=== PATIENT | female | born 1960 | race Caucasian/White ===

== ENCOUNTER 2017-05-25 14:52 | Emergency (ER) | payer OTHER ==
[2017-05-25 14:57] VITALS: PULSE 85; RESP 20; TEMP 98; O2SAT 98
--- NOTE | 2017-05-25 15:38 | ED PDOC ---
HPI: Trauma/Fall - HPI Time Seen by Provider: 05/25/17 15:03 Chief Complaint (Nursing): Trauma Chief Complaint (Provider): Chest pain History Per: Patient History/Exam Limitations: no limitations Onset/Duration Of Symptoms: Days (7), Persistent Location Of Injury: Left: Chest Severity: Moderate Additional History Per: Patient Additional Complaint(s): The pt is a 56yo female, PMhx of breast augmentation surgery in 2000, presents to the ED for evaluation of left chest wall pain, ongoing since she fell onto a coffee table one week ago. Pt states at time of injury, the pain was tolerable but has been increasing in intensity since then. Pt also states she developed some bruising which has progressively worsened. She reports pain worsens with deep inspiration, coughing as well as moving her left upper extremity. Reports taking Motrin for pain with minimal relief. Pt states she has a cough due to a respiratory infection which was present prior to the fall. She denies any other injuries. Additionally denies any leg swelling, SOB, fever. Pt reports she is concerned her breast implants might have been damaged due to the fall. Pt offers no additional medical complaints. Past Medical History Reviewed: Historical Data, Nursing Documentation, Vital Signs Vital Signs: Last Vital Signs Temp 98.0 F 05/25/17 14:55 Pulse 85 05/25/17 14:55 Resp 20 05/25/17 14:55 BP 163/97 H 05/25/17 14:55 Pulse Ox 98 05/25/17 14:55 - Medical History PMH: No Chronic Diseases - Surgical History Other surgeries: breast augmentation 2000 - Family History Family History: States: Unknown Family Hx - Social History Current smoker - smoking cessation education provided: Yes (heavy smoker) Alcohol: > 2 Drinks/Day (6-8 beers per day) Drugs: Denies - Home Medications Home Medications: Ambulatory Orders Medication Instructions Recorded Lidocaine 5% [Lidoderm] 1 ea TD DAILY PRN #10 patch 05/25/17 Naproxen [Naprosyn] 1 tab PO BID PRN #60 tab 05/25/17 - Allergies Allergies/Adverse Reactions: Allergies Allergy/AdvReac Type Severity Reaction Status Date / Time No Known Allergies Allergy Verified 05/25/17 14:55 Review of Systems ROS Statement: Except As Marked, All Systems Reviewed And Found Negative Constitutional: Negative for: Fever Cardiovascular: Positive for: Chest Pain Respiratory: Positive for: Cough. Negative for: Shortness of Breath Musculoskeletal: Negative for: Other (leg swelling) Physical Exam - Reviewed Nursing Documentation Reviewed: Yes Vital Signs Reviewed: Yes - Physical Exam Appears: Positive for: Well, Non-toxic, Uncomfortable Head Exam: Positive for: ATRAUMATIC, NORMAL INSPECTION, NORMOCEPHALIC Skin: Positive for: Normal Color Eye Exam: Positive for: Normal appearance Neck: Positive for: Normal, Supple Cardiovascular/Chest: Positive for: Regular Rate, Rhythm, Other (no gross deformity, subtle ecchymosis left lateral chest and upper chest wall. questionable crepidus to palpation lateral left chest wall and left breast. ). Negative for: Chest Non Tender (tenderness to palpation noted diffusely from left upper sternal border to left axilla as well as left breast.) Respiratory: Positive for: Normal Breath Sounds. Negative for: Respiratory Distress Gastrointestinal/Abdominal: Positive for: Normal Exam Extremity: Positive for: Normal ROM. Negative for: Pedal Edema Neurologic/Psych: Positive for: Alert, Oriented. Negative for: Motor/Sensory Deficits, Aphasia - ECG O2 Sat by Pulse Oximetry: 98 (RA) Pulse Ox Interpretation: Normal Medical Decision Making Medical Decision Making: Time: 1510 Impression: Chest wall trauma Plan: -- XR Ribs Left & PA Chest -- CT Chest w/o contrast Reassess Time: 1700 CT Chest Impression: No evidence of acute infiltrates or effusions. Mild atelectasis and or scarring changes seen in the lingular and middle lobe regions former slightly more so than latter. No evidence of acute left-sided rib fracture seen. Centrilobular emphysematous changes with upper lobe predominance. There also appear to be some early paraseptal emphysematous changes in the lung apices and upper lobes as well. Bilateral breast implants. Scribe Attestation: Documented by Franci Conti acting as a scribe for Kathy Ocasio MD. Provider Attestation: All medical record entries made by the Scribe were at my direction and personally dictated by me. I have reviewed the chart and agree that the record accurately reflects my personal performance of the history, physical exam, medical decision making, and the department course for this patient. I have also personally directed, reviewed, and agree with the discharge instructions and disposition. Disposition - Clinical Impression Clinical Impression: Contusion of chest Counseled Patient/Family Regarding: Studies Performed (also discussed findings of early emphysema on CT to encourage patient to quit smoking), Diagnosis, Need For Followup, Rx Given, Smoking Cessation (3min) - Disposition Referrals: [facility] [Outside] - 05/26/17 Disposition: Routine/Home Disposition Time: 17:00 Condition: GOOD Additional Instructions: PLEASE START REGULAR MEDICAL CARE WITH CLINIC. CONSIDER CUTTING DOWN ON ALCOHOL USE AND QUITTING SMOKING. RETURN TO ER FOR WORSENING SYMPTOMS Prescriptions: Lidocaine 5% [Lidoderm] 1 ea TD DAILY PRN #10 patch PRN Reason: PAIN Naproxen [Naprosyn] 1 tab PO BID PRN #60 tab PRN Reason: Pain Instructions: Contusion in Adults (ED), Blunt Chest Trauma (ED), How to Stop Smoking (ED)
--- NOTE | 2017-05-25 16:43 | CT ---
PROCEDURE: CT Chest without contrast HISTORY: chest trauma LEFT anterior chest wall COMPARISON: None. TECHNIQUE: Contiguous axial images were obtained through the chest without intravenous contrast enhancement. Sagittal and coronal reconstructions were performed. Radiation dose (DLP): 592.14 mGy-cm. This CT exam was performed using one or more of the following dose reduction techniques: Automated exposure control, adjustment of the mA and/or kV according to patient size, and/or use of iterative reconstruction technique. FINDINGS: LUNGS: Minor atelectasis and or scarring changes in the lingular and middle lobe regions former slightly more so than latter. No evidence of focal consolidation. Appears to be some very mild centrilobular emphysematous changes upper lobe predominance with the paraseptal emphysematous changes as well in both lung apices and upper lung kline right greater than left. MEDIASTINUM: Heart size is within range of normal. No significant pericardial effusion. Ascending thoracic aorta measures approximately 3.6 cm and descending thoracic aorta measures approximately 2.4 cm. Pulmonary trunk measures approximately 2.65 cm. Few small nonspecific mediastinal lymph nodes are present. Evaluation for hilar adenopathy is limited due to the lack of circulating intravenous contrast material. Tiny hiatal hernia. PLEURA: No pleural fluid. No pneumothorax. BONES: Mild multilevel degenerative spondylosis of the thoracic spine with a few areas of localized sclerosis along the thoracic anterior endplates. No acute compression fractures. No definitive radiographic evidence of acute left-sided rib fracture seen. UPPER ABDOMEN: Visualized upper abdominal structures grossly unremarkable. OTHER FINDINGS: Bilateral breast implants. . IMPRESSION: No evidence of acute infiltrates or effusions. Mild atelectasis and or scarring changes seen in the lingular and middle lobe regions former slightly more so than latter. No evidence of acute left-sided rib fracture seen. Centrilobular emphysematous changes with upper lobe predominance. There also appear to be some early paraseptal emphysematous changes in the lung apices and upper lobes as well. Bilateral breast implants.
--- NOTE | 2017-05-25 16:47 | RAD ---
PROCEDURE: Radiographs of the Chest and Left Ribs. HISTORY: chest pain LEFT sided sp trauma COMPARISON: None available. TECHNIQUE: Frontal radiograph of the chest and multiple oblique radiographs of the left ribs were obtained. FINDINGS: LEFT RIBS: No evidence of acute displaced left-sided rib fracture however there is slight deformity of the left posterolateral 11th rib which could represent old healed fracture deformity. LUNGS: Clear. PLEURA: No pneumothorax or pleural fluid. CARDIOVASCULAR: Normal sized heart. No pulmonary vascular congestion. OTHER FINDINGS: None. IMPRESSION: No evidence of acute displaced fracture nor dislocation. Questionable old healed left posterolateral 11th rib fracture No acute cardiopulmonary disease.
[2017-05-25 17:25] VITALS: BP 125/73
== END 2017-05-25 17:25 | disposition home or self-care (01) ==
LOC: H.ER 14:52
DX: S20.219A Contusion of unspecified front wall of thorax, initial encounter (principal); W22.8XXA Striking against or struck by other objects, initial encounter; Y92.89 Other specified places as the place of occurrence of the external cause

== ENCOUNTER 2017-08-25 16:59 | Emergency (ER) | payer SELFPAY ==
[2017-08-25 17:13] VITALS: BP 170/96; PULSE 84; RESP 18; TEMP 97.1; O2SAT 100
[2017-08-25] MEDS ORDERED: Sodium Chloride 0.9% 1,000 ML IV STA (17:58)
--- NOTE | 2017-08-25 17:59 | ED PDOC ---
HPI: Allergic Reaction Time Seen by Provider: 08/25/17 17:50 Chief Complaint (Nursing): Allergic Reaction Chief Complaint (Provider): medication reaction History Per: Patient, Family Additional Complaint(s): 57-year-old female with history of alcohol abuse presents to emergency department for evaluation of possible reaction to medication. Patient was started on Antabuse 3 days ago and states that she took her last dose 2 days ago but then today she drank 3 beers. Patient immediately became flushed and developed chest pain, shortness of breath and sensation that throat was closing upon drinking alcohol today. Patient arrives in emergency department stating that symptoms are now resolving. She states she was started on Antabuse 3 weeks ago and has not had anything to drink since starting the medication until today. Past Medical History Reviewed: Historical Data, Nursing Documentation, Vital Signs Vital Signs: Last Vital Signs Temp 97.1 F L 08/25/17 17:11 Pulse 84 08/25/17 17:11 Resp 18 08/25/17 17:11 BP 170/96 H 08/25/17 17:11 Pulse Ox 100 08/25/17 17:11 - Medical History PMH: HTN Other PMH: etoh abuse - Surgical History Other surgeries: breast augmentation - Family History Family History: States: No Known Family Hx - Living Arrangements Living Arrangements: With Family - Social History Current smoker - smoking cessation education provided: No Ex-Smoker (has not smoked in the last 12 months): Yes Alcohol: > 2 Drinks/Day Drugs: Denies - Home Medications Home Medications: Ambulatory Orders Medication Instructions Recorded Lidocaine 5% [Lidoderm] 1 ea TD DAILY PRN #10 patch 05/25/17 Naproxen [Naprosyn] 1 tab PO BID PRN #60 tab 05/25/17 - Allergies Allergies/Adverse Reactions: Allergies Allergy/AdvReac Type Severity Reaction Status Date / Time No Known Allergies Allergy Verified 05/25/17 14:55 Review of Systems ROS Statement: Except As Marked, All Systems Reviewed And Found Negative Constitutional: Negative for: Fever ENT: Positive for: Throat Pain Cardiovascular: Positive for: Chest Pain (resolving) Respiratory: Positive for: Shortness of Breath Gastrointestinal: Positive for: Nausea. Negative for: Vomiting Neurological: Negative for: Headache, Dizziness Physical Exam - Reviewed Nursing Documentation Reviewed: Yes Vital Signs Reviewed: Yes - Physical Exam Appears: Positive for: Well, Non-toxic, No Acute Distress Skin: Negative for: Normal Color (Flushing of skin noted to the face) Eye Exam: Positive for: Normal appearance, EOMI, PERRL Cardiovascular/Chest: Positive for: Regular Rate, Rhythm Respiratory: Positive for: Normal Breath Sounds. Negative for: Respiratory Distress Gastrointestinal/Abdominal: Positive for: Soft. Negative for: Tenderness, Distended, Guarding, Rebound Back: Negative for: L CVA Tenderness, R CVA Tenderness Extremity: Positive for: Normal ROM. Negative for: Pedal Edema Neurologic/Psych: Positive for: Alert, Oriented - ECG Interpretation Of ECG: Normal sinus rhythm 81 bpm, no acute finding, reviewed by PA and ED attending. O2 Sat by Pulse Oximetry: 100 Pulse Ox Interpretation: Normal - Progress ED Course And Treament: 57-year-old female with adverse reaction to medication. Plan: Labs IVF EKG ED observation Upon arrival patient states she feels much better and does not wish to stay. She is refusing blood work and other indicated diagnostic test at this time. Patient was advised she would need to sign out AGAINST MEDICAL ADVICE Leaving Against Medical Advice (AMA): This patient is choosing to leave against medical advice. I have personally explained to the patient that choosing to do so may result in permanent bodily harm or . I discussed at great length that without further evaluation and monitoring there may be unforeseen circumstances and/or deterioration causing permanent bodily harm or as a result of their choice. The patient verbalized these risks back to the ED provider in laymans terms. The patient is alert, oriented, and shows the mental capacity to make clear decisions regarding her health care at this time. The patient continues to wish to leave against medical advice. The patient has been advised that they should return to the ED immediately if they change their mind at any time, or if their condition begins to change or worsen in any way. Disposition - Clinical Impression Clinical Impression: Adverse reaction to drug, Left against medical advice - Patient ED Disposition Is Patient to be Admitted: No - Disposition Disposition: Against Medical Advice Disposition Time: 18:13 Condition: UNKNOWN Additional Instructions: You have decided to sign out against medical advice. Return any time if acutely worse, otherwise follow up with primary care doctor. Instructions: Adverse Drug Reaction (ED), Against Medical Advice (ED) Forms: [employer] (Tai[place]ese)
== END 2017-08-25 18:20 | disposition left against medical advice (07) ==
LOC: H.ER 16:59
DX: T88.7XXA Unspecified adverse effect of drug or medicament, initial encounter (principal); T50.995A Adverse effect of other drugs, medicaments and biological substances, initial encounter; Y92.89 Other specified places as the place of occurrence of the external cause